=== PATIENT | female | born 1945 | race Caucasian/White ===

== ENCOUNTER 2022-09-22 12:47 | Emergency (ER) | payer OTHER ==
[~2022-09-22] VITALS: Ht 175.3 cm; Wt 51.7 kg
[2022-09-22 12:53] VITALS: BP_SYST 147
[2022-09-22] MEDS ORDERED: AMOX-423 PO (12:59)
[2022-09-22] MEDS ORDERED: DIPHTH,PERTUSS(ACELL),TET VAC 0.5 ML VIAL (Tdap) I.M. ONE (13:00)
[2022-09-22] MEDS ORDERED: BACITRACIN 1 GM OINT TP ONE ×2 (13:13→13:15)
[2022-09-22] MEDS ORDERED: ACET-2634 PO (13:16)
[2022-09-22 13:33] VITALS: BP_SYST 148
== END 2022-09-22 13:35 | disposition home or self-care (01) ==
LOC: SED 12:47
DX: S61.432A Puncture wound without foreign body of left hand, initial encounter (principal); Z79.899 Other long term (current) drug therapy; W55.01XA Bitten by cat, initial encounter; Y93.89 Activity, other specified; Y92.89 Other specified places as the place of occurrence of the external cause; Y99.8 Other external cause status
CPT/HCPCS: 90715; 99283